=== PATIENT | male | born 1975 | race Caucasian/White ===

== ENCOUNTER → 2016-07-19 | Outpatient (CLI) | payer BC ==
[~2016-07-19] MED LIST: ALBUAER INH; B-CO1CAP3 PO; CETI10TA84 PO; CHLO1TAB47 PO; DIVA250T PO; DXM/4 PO; IBUP600T44 PO; LAMO1TAB PO; LANS15CA6 PO; LORA-741 PO; MONT1TAB3 PO; ONDA4TAB46 PO; PEDICHW50 PO; PRLSR20 PO; PROC1TAB5 PO; TEMO1CAP4 PO; TEMO1CAP7 PO
[2016-07-19 11:09] LABS: ALT/SGPT 26 U/L (12-78); AST/SGOT 9 U/L (15-37); BLOOD UREA NITROGEN 14 mg/dl (7-18); BUN/CREATININE RATIO 9.4 (10-20); CALCIUM 9.1 mg/dl (8.5-10.1); CARBON DIOXIDE 27 mmol/L (21-32); CHLORIDE 104 mmol/L (98-107); GLUCOSE 99 mg/dl (70-99); POTASSIUM 4.2 mmol/L (3.5-5.1); SODIUM 141 mmol/L (136-145)
[2016-07-19 11:11] LABS: ALB/GLOB RATIO 1.6 (0.9-2); ALKALINE PHOSPHATASE 85 U/L (45-117)
== END | disposition home or self-care (01) ==
LOC: C.LABBC 08:33
PROVIDERS: ATTEND Psychiatry & Neurology Neurology
DX: Z51.81 Encounter for therapeutic drug level monitoring (principal); R56.9 Unspecified convulsions; Z79.899 Other long term (current) drug therapy

== ENCOUNTER → 2016-08-06 | Outpatient (CLI) | payer BC ==
--- NOTE | 2016-08-08 13:23 | EEG Procedure Note ---
EEG Procedure Note Date of Service Aug 06, 2016. 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 EEG for further evaluation of seizures. Pertinent home medications: Lamictal Home Medication List Scheduled Divalproex Sodium (Depakote Er), 3 TAB PO BID Montelukast Sodium (Singulair), 10 MG PO DAILY Omeprazole (Prilosec), 20 MG PO DAILY Scheduled PRN Albuterol (Proventil Hfa), 2 PUFFS INH Q4 PRN for SOB/Wheezing Chlorpheniramine-Phenylephrine (Elisa-Campton Plus Cold), 1 TAB PO PRN PRN for COLD SYMPTOMS Ibuprofen (Motrin), 600 MG PO TID PRN for Pain Description This is a 21 electrode EEG with a single channel dedicated to limited EKG. The electrodes were placed in accordance with the International 10-20 system. There was intermittent electrode and muscle artifact that at times limited the read of this EEG. At the start of the recording the patient was in an awake state. Background was well organized and composed of mixed alpha and beta frequencies with continuous left hemispheric theta slowing maximal over the left frontal temporal region. There was a symmetric well-formed moderate amplitude 8-9 Hz posterior dominant rhythm that was reactive to eye opening and closure. Hyperventilation with good effort produced no abnormalities. Intermittent photic stimulation at various frequencies produced no abnormalities. Mild drowsiness was indicated by mild slowing of the background rhythm and loss of muscle artifact. There was no sleep transients. Interpretation This is an abnormal routine EEG secondary to continuous mild slowing over the left frontotemporal area. There was no electrographic seizures or epileptiform discharges. Clinical Correlation This EEG indicates a structural or functional cerebral dysfunction over the left frontotemporal area
== END | disposition home or self-care (01) ==
LOC: C.NEUR 13:51
PROVIDERS: ATTEND Psychiatry & Neurology Neurology
DX: C71.1 Malignant neoplasm of frontal lobe (principal); G40.209 Localization-related (focal) (partial) symptomatic epilepsy and epileptic syndromes with complex partial seizures, not intractable, without status epilepticus; R43.1 Parosmia

== ENCOUNTER → 2017-01-18 | Outpatient (CLI) | payer BC ==
[~2017-01-18] MED LIST changes: -CHLO1TAB47 PO; -DIVA250T PO; -IBUP600T44 PO; -MONT1TAB3 PO; -PRLSR20 PO
[2017-01-18 13:20] LABS: BASO % 0.4 %; BASO ABS # 0.03 K/uL (0-0.2); COMPLETE YES; EOS % 0.9 %; HEMATOCRIT 38.4 % (42-52); IG% 0.4 %; LYMPH % 16.2 %; LYMPH ABS # 1.23 K/uL (1.2-3.4); MEAN CELL VOLUME 80.7 fL (80-100); MEAN CORPUSCULAR HEMOGLOBIN 26.7 pg (25-34); MEAN CORPUSCULAR HGB CONC 33.1 g/dl (32-36); MEAN PLATELET VOLUME 9.4 fL (7.4-10.4); MONO % 8.4 %; NEUT % 73.7 %; PLATELET COUNT 124 K/uL (130-400); RED BLOOD COUNT 4.76 M/uL (4.7-6.1); WHITE BLOOD COUNT 7.59 K/uL (4.8-10.8)
[2017-01-18 13:56] LABS: ALT/SGPT 23 U/L (12-78); AST/SGOT 9 U/L (15-37); BLOOD UREA NITROGEN 8 mg/dl (7-18); BUN/CREATININE RATIO 5.1 (10-20); CALCIUM 8.8 mg/dl (8.5-10.1); CARBON DIOXIDE 26 mmol/L (21-32); CHLORIDE 105 mmol/L (98-107); GLUCOSE 95 mg/dl (70-99); POTASSIUM 3.7 mmol/L (3.5-5.1); SODIUM 141 mmol/L (136-145)
[2017-01-18 13:59] LABS: ALB/GLOB RATIO 1.5 (0.9-2); ALKALINE PHOSPHATASE 65 U/L (45-117)
== END | disposition home or self-care (01) ==
LOC: C.LAB 11:33
PROVIDERS: ATTEND Psychiatry & Neurology Neurology
DX: C71.9 Malignant neoplasm of brain, unspecified (principal)

== ENCOUNTER → 2017-01-18 | Outpatient (CLI) | payer BC ==
[2017-01-18 10:30] VITALS: BP 137/76; PULSE 100; TEMP 36.5; O2SAT 96
--- NOTE | 2017-01-18 12:11 | Radiation Oncology Follow-Up ---
Radiation Oncology Follow-Up Date of Visit Jan 18, 2017. Reason For Visit One-month follow-up Radiation Completion Date 11/20/16 Diagnosis (1) Glioblastoma multiforme Status: Acute Onset Date: 09/03/2016 Location: left frontal lobe Stage: IV Permanent Comment: Syncopal episodes, abnormal MRI Status post left frontotemporal craniotomy with resection of tumor 05/09/2015 ( -Dr. 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 Radiation completed 11/20/2016. He received 6000 cGy. Chemotherapy comprised of Temodar ([facility]-Dr. You) Last Edited By: Iwona Plaza on Jan 18, 2017 12:11 History of Present Illness Mr. Childs is a 41-year-old gentleman who initially presented to the emergency room in April 2015 with a partial focal seizure. He had a MRI of the Brain ( 05/01/15) - IMPRESSION: A 7.4 x 5.6 cm T2 hyperintense partially cystic lesion within the left frontal lobe/external capsule. This is highly suspicious for a mass despite the lack of enhancement. This may demonstrate both intra-axial and extra-axial components. There is associated 9 mm of right midline shift and left uncal herniation with mass effect along the midbrain. This is similar to the recent head CT. The patient subsequently went to [facility] for further care. He did have a CT of the chest/abdomen/pelvis on 05/03/2015 which showed no evidence of suspicious mass or lymphadenopathy. He did have a repeat MRI of the brain on April 2015 which an expansive, infiltrative, partially cystic nonenhancing mass centered within the left insula, anterior left frontal lobe and superior temporal lobe resulting in moderate mass effect on the left lateral ventricle, 9 mm rightward midline shift and left uncal herniation. The patient underwent a left partial craniotomy by Dr. Kurtz at [facility] on 05/09/2015 which revealed diffuse astrocytoma, WHO grade 2. 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 He also noted that the Ki-67 index was low. The patient did have a repeat follow-up MRI imaging of the brain which did show only postoperative changes with no evidence of recurrent disease. The patient continued to do well until he developed auras potentially associated with seizures. He did have a MRI of the brain on 08/21/2016 which revealed potential progression along the anterior and posterior margins of the resection cavity. The patient had a repeat MRI of the brain on 09/02/2016 which showed 2 enhancing foci, one in the region of the inferior frontal gyrus and second along the posterior margin of the resection cavity which both appear to be minimally more prominent compared to prior studies. Given the high likelihood of potential recurrence Dr. Kurtz recommended consideration for re-resection to rule out recurrent disease. The patient underwent a left craniotomy on 09/03/2016 and at the time of the procedure Dr. Kurtz did perform resections of both the anterior and posterior tumors previously noted on the MRI of the brain studies. Pathology from surgery revealed glioblastoma, WHO grade 4. At the time of this consultation, the MGMT methylation status was not reported. The patient did have a postoperative MRI of the brain 09/04/2016 which revealed postoperative changes following revision of the left parietal craniotomy; enhancing foci along the anterior and posterior aspects of the resection cavity seen on prior MRI are no longer evident and there is no other evidence of residual disease. The patient was seen in consultation by Dr. You from neuro-oncology at [facility] who recommended adjuvant chemotherapy and radiation therapy. Dr. You also discussed potential Optune therapy as well. We are now seeing the patient in consultation discuss the role of radiation therapy. The patient is doing well overall. He denies any focal neurologic deficits or headaches. The patient has stated that he has participated in sperm banking for preservation of fertility. He was treated with combined radiation and chemotherapy. Radiation was completed 11/20/2016. He received 6000 cGy. Chemotherapy comprised of Temodar. Interim History He is been doing well over the past month. Continues regular follow-up with Dr. You. He is now taking the Temodar 5 days of the month. He is now also using Optune. He began using the PedidosYa / PedidosJátSanera apparatus 2 weeks ago. He states he tolerates this well other than at night if there is a low battery. Sometimes a cable can become dislodged and will also cause an alarm. For the most part is not a problem. He has occasional headache. This is very mild. It does not require taking any [id number]-[id number] medications. This is usually very brief and resolve without difficulty. He is now been off of the steroids for 2 weeks. This was tapered slowly and then discontinued. He does note that he has decreased energy since being off of the steroid. He denies any soreness of the mouth. At times when he feels fatigued he will eat and that helps his energy level. He feels is related to lower blood sugar. He did see Dr. You and have a recheck MRI in [facility] on 12/17/2016. Allergies Coded Allergies: No Known Allergies (Unverified , 02/09/16) Home Medications Scheduled Lamotrigine (Lamictal Xr), 375 MG PO BID Lansoprazole (Prevacid), 15 MG PO HS Pediatric Multiple Vitamin W/ (Flintstones Chewable), 1 TAB PO QAM Temozolomide (Temodar), 1 CAP PO DIRECTED Temozolomide (Temodar), 1 CAP PO DIRECTED Scheduled PRN Albuterol (Proventil Hfa), 2 PUFFS INH Q4 PRN for SOB/Wheezing Ondansetron Hcl (Zofran), 4 MG PO for Nausea Prochlorperazine Maleate (Compazine), 1 TAB PO Q6 PRN for Nausea Review of Systems Gastrointestinal: Symptoms: Nausea, Constipation GI Comments: Waves of nausea;has antiemetics to use PRN;Takes miralax daily; Oral: Symptoms: No Problems Respiratory: Symptoms: WNL Urinary: Symptoms: WNL Skin: Symptoms: No Problems Physical Exam Vital Signs Date Time Temp Pulse Resp B/P (MAP) Pulse Ox O2 Delivery O2 Flow Rate FiO2 01/18/17 10:30 36.5 100 20 137/76 96 Fatigue: None General Appearance: no apparent distress Eyes: normal inspection, EOMI ENT: normal ENT inspection, hearing grossly normal Neck: no adenopathy, thyroid normal Respiratory/Chest: lungs clear, no respiratory distress, no accessory muscle use Cardiovascular: regular rate, rhythm, no gallop, no murmur Abdomen: non tender, soft, no organomegaly Extremities: no pedal edema Neurologic/Psychiatric: no motor/sensory deficits (very slight decreased strength of upper and lower extremities. This was equal bilaterally.), alert, normal mood/affect Skin: warm/dry Lymphatic: no adenopathy Laboratory Studies Test 11/07/16 17:31 11/14/16 08:29 01/18/17 11:40 RDW Standard Deviation 44.2 fL (36.4-46.3) 45.4 fL (36.4-46.3) RDW Coefficient of Variation 14.5 % (11.5-14.5) 15.1 % (11.5-14.5) White Blood Count 12.47 K/uL (4.8-10.8) 10.64 K/uL (4.8-10.8) Red Blood Count 4.65 M/uL (4.7-6.1) 4.85 M/uL (4.7-6.1) Hemoglobin 12.2 g/dL (14.0-18.0) 12.6 g/dL (14.0-18.0) Hematocrit 38.6 % (42-52) 39.9 % (42-52) Mean Corpuscular Volume 83.0 fL (80-100) 82.3 fL (80-100) Mean Corpuscular Hemoglobin 26.2 pg (25-34) 26.0 pg (25-34) Mean Corpuscular Hemoglobin Concent 31.6 g/dl (32-36) 31.6 g/dl (32-36) Platelet Count 243 K/uL (130-400) 194 K/uL (130-400) Mean Platelet Volume 9.1 fL (7.4-10.4) 9.3 fL (7.4-10.4) Neutrophils (%) (Auto) 83.5 % 79.6 % Lymphocytes (%) (Auto) 7.0 % 9.0 % Monocytes (%) (Auto) 8.5 % 9.8 % Eosinophils (%) (Auto) 0.0 % 0.3 % Basophils (%) (Auto) 0.1 % 0.1 % Neutrophils # (Auto) 10.42 K/uL (1.4-6.5) 8.47 K/uL (1.4-6.5) Lymphocytes # (Auto) 0.87 K/uL (1.2-3.4) 0.96 K/uL (1.2-3.4) Monocytes # (Auto) 1.06 K/uL (0.11-0.59) 1.04 K/uL (0.11-0.59) Eosinophils # (Auto) 0.00 K/uL (0-0.5) 0.03 K/uL (0-0.5) Basophils # (Auto) 0.01 K/uL (0-0.2) 0.01 K/uL (0-0.2) Immature Granulocyte % (Auto) 0.9 % 1.2 % Immature Granulocyte # (Auto) 0.11 K/uL (0.00-0.02) 0.13 K/uL (0.00-0.02) Est Creatinine Clear Calc Drug Dose 81.2 ml/min 88.0 ml/min Sodium Level 138 mmol/L (136-145) Potassium Level 4.3 mmol/L (3.5-5.1) Chloride Level 103 mmol/L (98-107) Carbon Dioxide Level 27 mmol/L (21-32) Anion Gap 8.0 mmol/L (3-11) Blood Urea Nitrogen 25 mg/dl (7-18) Creatinine 1.20 mg/dl (0.60-1.40) Estimated GFR () 87.8 Estimated GFR (Non- 75.7 BUN/Creatinine Ratio 20.6 (10-20) Random Glucose 90 mg/dl (70-99) Calcium Level 9.1 mg/dl (8.5-10.1) Total Bilirubin 0.4 mg/dl (0.2-1) Aspartate Amino Transferase (AST) 15 U/L (15-37) Alanine Aminotransferase (ALT) 67 U/L (12-78) Alkaline Phosphatase 38 U/L (45-117) Total Protein 6.2 gm/dl (6.4-8.2) Albumin 3.5 gm/dl (3.4-5.0) Globulin 2.7 gm/dl (2.5-4.0) Albumin/Globulin Ratio 1.3 (0.9-2) Additional Studies 12/17/2016 4:38 PM - Interface, Rad In Narrative EXAM MRI scan of the brain with and without contrast,12/17/2016 HISTORY 41-year-old male status post resection of left frontal lobe WHO grade II astrocytoma 05/09 2015. Recent repeat craniotomy and resection of left frontal lobe glioblastoma 09/03/2016 with subsequent radiation therapy and chemotherapy. COMPARISON Brain MRI scan 09/04/2016, 09/02/2016, 08/21/2016, 12/27/2015, 05/10/2015, 05/03, and 05/01/2015. TECHNIQUE Multiplanar, multisequence magnetic resonance images of the brain are acquired before and after administration of IV contrast on a 1.5 Krissy system. FINDINGS Again demonstrated are postoperative changes compatible with previous left fronto-parietal craniotomy for resection of left frontal lobe tumor. Edema and patchy restricted diffusion along the margins of the resection cavity noted on the immediate postoperative brain MRI dated 2016 has resolves. The residual resection cavity within the left frontal lobe communicates with the left frontal horn. Gradient recalled echo sequence shows minimal susceptibility artifact along the resection margins compatible with products of prior hemorrhage. No mass effect or surrounding edema is noted. Post-contrast images reveal no suspicious nodular enhancement in or about the resection cavity. Confluent T2/FLAIR signal hyperintensity and low T1 signal is again noted along the margins of the left frontal lobe resection cavity, extending into the left anteromedial temporal lobe, to include the uncus, amygdala, and anterior hippocampus. These signal abnormalities are grossly stable, considering differences in slice selection. No convincing new signal abnormalities are demonstrated. The brain is otherwise grossly normal in morphology. No midline shift, hydrocephalus, or extra-axial fluid collections are demonstrated. The pituitary gland, corpus callosum, pineal region, brainstem, cerebellum, and craniocervical junction are within normal limits. Expected intracranial arterial and venous flow voids are grossly patent. Mild, nonobstructive mucosal thickening and small retention cysts are incidentally noted in the maxillary and ethmoid sinuses. Nondedicated images through the orbits reveal no gross intraorbital pathology. IMPRESSION 1. Expected evolution of postoperative changes within the left frontal lobe at the site of recent tumor resection without abnormal enhancement. 2. Persistent T2/FLAIR signal hyperintensity surrounding the left frontal lobe resection cavity, and extending into the ipsilateral anteromedial temporal lobe may represent post treatment changes. However, residual nonenhancing tumor cannot be excluded. Continued MRI scan surveillance is warranted. Authenticated By Authenticating Date Authenticating Time Reading Providers(s) CASS RUIZ MD 12-17-2016 16:38 CASS RUIZ MD Assessment & Plan Plan: The patient was also seen and examined by Dr. Rosenthal. He'll continue regular follow-up and recheck MRIs with Dr. You. We discussed the effects of now being off the steroid therapy. He has noted weakness and fatigue. He had more stamina and energy while on steroid. He will continue on the Temodar 5 days of the month. He will also continue on the Optune therapy. We asked him to return to our office in 6 months. He may call if he has any questions or concerns in the interim. ADDENDUM: I agree with note created by Iwona Plaza PA-C. I reviewed the patient's chart and information with her. I have examined and evaluated the patient. I reviewed relevant clinical information and answered the patient's and /or family's questions. PATIENT BILLER Total Time In Follow-Up I spent 20 minutes speaking to the patient performing examination. I spent 15 minutes reviewing information completing this note. AK I spent 15 minutes examining and counseling the patient. PATIENT BILLER Copy To Esperanza MACK M.D.; Gildardo You M.D.
== END | disposition home or self-care (01) ==
LOC: C.ONC 10:15
PROVIDERS: ATTEND Physician Assistant Medical
DX: Z08 Encounter for follow-up examination after completed treatment for malignant neoplasm (principal); Z92.3 Personal history of irradiation; Z85.841 Personal history of malignant neoplasm of brain

== ENCOUNTER → 2017-01-24 | Outpatient (CLI) | payer BC | END | disposition home or self-care (01) | LOC: C.LAB 09:02 | PROVIDERS: ATTEND Psychiatry & Neurology Neurology | DX: Z51.81 Encounter for therapeutic drug level monitoring (principal) ==

== ENCOUNTER → 2017-05-21 | Outpatient (CLI) | payer BC ==
[~2017-05-21] MED LIST changes: -B-CO1CAP3 PO; -CETI10TA84 PO; -DXM/4 PO; -LORA-741 PO
[2017-05-21 09:56] LABS: BASO % 0.2 %; BASO ABS # 0.01 K/uL (0-0.2); COMPLETE YES; EOS % 3.5 %; HEMATOCRIT 41.5 % (42-52); IG% 0.2 %; LYMPH % 15.8 %; LYMPH ABS # 0.68 K/uL (1.2-3.4); MEAN CELL VOLUME 90.8 fL (80-100); MEAN CORPUSCULAR HEMOGLOBIN 31.7 pg (25-34); MEAN CORPUSCULAR HGB CONC 34.9 g/dl (32-36); MEAN PLATELET VOLUME 9.1 fL (7.4-10.4); MONO % 11.4 %; NEUT % 68.9 %; PLATELET COUNT 135 K/uL (130-400); RED BLOOD COUNT 4.57 M/uL (4.7-6.1); WHITE BLOOD COUNT 4.31 K/uL (4.8-10.8)
[2017-05-21 10:11] LABS: ALT/SGPT 25 U/L (12-78); BLOOD UREA NITROGEN 13 mg/dl (7-18); BUN/CREATININE RATIO 10.3 (10-20); CALCIUM 9.1 mg/dl (8.5-10.1); CARBON DIOXIDE 29 mmol/L (21-32); CHLORIDE 103 mmol/L (98-107); CREATININE 1.28 mg/dl (0.60-1.40); GLUCOSE 84 mg/dl (70-99); POTASSIUM 4.2 mmol/L (3.5-5.1); SODIUM 138 mmol/L (136-145)
[2017-05-21 10:13] LABS: ALB/GLOB RATIO 1.5 (0.9-2); ALKALINE PHOSPHATASE 95 U/L (45-117); AST/SGOT 11 U/L (15-37)
== END | disposition home or self-care (01) ==
LOC: C.LAB 08:08
PROVIDERS: ATTEND Psychiatry & Neurology Neurology
DX: G40.209 Localization-related (focal) (partial) symptomatic epilepsy and epileptic syndromes with complex partial seizures, not intractable, without status epilepticus (principal)

== ENCOUNTER → 2017-07-23 | Outpatient (CLI) | payer OTHER ==
[~2017-07-23] MED LIST changes: +CHOL1000 PO; +TEMO100I PO; +[UNRECOGNIZED DRUG - OTHER] PO
[2017-07-23 13:13] VITALS: BP 140/82; PULSE 90; TEMP 36.6; O2SAT 99
--- NOTE | 2017-07-23 16:25 | Radiation Oncology Follow-Up ---
Radiation Oncology Follow-Up Date of Visit Jul 23, 2017. Reason For Visit Six-month follow-up Radiation Completion Date finished 11-20-2016 Diagnosis (1) Glioblastoma multiforme Status: Acute Onset Date: 09/03/2016 Location: Left frontal lobe Stage: IV Permanent Comment: Syncopal episodes, abnormal MRI Status post left frontotemporal craniotomy with resection of tumor 05/09/2015 ( -Dr. 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 Radiation completed 11/20/2016. He received 6000 cGy. Chemotherapy comprised of Temodar ([facility]-Dr. Jean) Last Edited By: Iwona Plaza on Jul 23, 2017 16:17 History of Present Illness Mr. Childs presented to the emergency room in April 2015 with a partial focal seizure. He had a MRI of the Brain (05/01/15) - IMPRESSION: A 7.4 x 5.6 cm T2 hyperintense partially cystic lesion within the left frontal lobe/ external capsule. This is highly suspicious for a mass despite the lack of enhancement. This may demonstrate both intra-axial and extra-axial components. There is associated 9 mm of right midline shift and left uncal herniation with mass effect along the midbrain. This is similar to the recent head CT. The patient subsequently went to [facility] for further care. He did have a CT of the chest/abdomen/pelvis on 05/03/2015 which showed no evidence of suspicious mass or lymphadenopathy. He did have a repeat MRI of the brain on April 2015 which an expansive, infiltrative, partially cystic nonenhancing mass centered within the left insula, anterior left frontal lobe and superior temporal lobe resulting in moderate mass effect on the left lateral ventricle, 9 mm rightward midline shift and left uncal herniation. The patient underwent a left partial craniotomy by Dr. Kurtz at [facility] on 05/09/2015 which revealed diffuse astrocytoma, WHO grade 2. 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 He also noted that the Ki-67 index was low. The patient did have a repeat follow-up MRI imaging of the brain which did show only postoperative changes with no evidence of recurrent disease. The patient continued to do well until he developed auras potentially associated with seizures. He did have a MRI of the brain on 08/21/2016 which revealed potential progression along the anterior and posterior margins of the resection cavity. The patient had a repeat MRI of the brain on 09/02/2016 which showed 2 enhancing foci, one in the region of the inferior frontal gyrus and second along the posterior margin of the resection cavity which both appear to be minimally more prominent compared to prior studies. Given the high likelihood of potential recurrence Dr. Kurtz recommended consideration for re-resection to rule out recurrent disease. The patient underwent a left craniotomy on 09/03/2016 and at the time of the procedure Dr. Kurtz did perform resections of both the anterior and posterior tumors previously noted on the MRI of the brain studies. Pathology from surgery revealed glioblastoma, WHO grade 4. At the time of this consultation, the MGMT methylation status was not reported. The patient did have a postoperative MRI of the brain 09/04/2016 which revealed postoperative changes following revision of the left parietal craniotomy; enhancing foci along the anterior and posterior aspects of the resection cavity seen on prior MRI are no longer evident and there is no other evidence of residual disease. The patient was seen in consultation by Dr. You from neuro-oncology at [facility] who recommended adjuvant chemotherapy and radiation therapy. Dr. You also discussed potential Optune therapy as well. We are now seeing the patient in consultation discuss the role of radiation therapy. The patient is doing well overall. He denies any focal neurologic deficits or headaches. The patient has stated that he has participated in sperm banking for preservation of fertility. He was treated with combined radiation and chemotherapy. Radiation was completed 11/20/2016. He received 6000 cGy. Chemotherapy comprised of Temodar. Interim History Over the past 6 months he has been doing well. He denies any headaches or dizziness. He has had no change in vision. He continues on Temodar 5 days of the month. He does have associated nausea. He takes the antiemetic on a regular basis while on the Temodar. He is also receiving Optune therapy. He does have skin irritation intermittently. Currently feels that there are no areas of irritation. He has had regular follow-ups with the neuro-oncologist. He is now seeing Dr. Jean. He had a recheck MRI of the brain June 27, 2017. This showed postsurgical changes of the left frontoparietal craniotomy for the resection of the left frontal and insular tumor with stable T2/flair hyperintense signal along the margins of the resection cavity in the left frontal lobe, left posterior insula and left anterior temporal lobe without abnormal contrast enhancement or increased R CBV likely representing residual tumor. Interval appearance of small focal enhancing T2/flair hyperintense lesion in the body of the corpus callosum without increased R CBV, likely representing posttreatment changes. However high-grade tumor cannot be entirely excluded. Suggested closed attention on follow-up imaging. With this finding he is rescheduled for an MRI in July. He will have a follow-up visit with the neuro-oncologist. Allergies Coded Allergies: No Known Allergies (Unverified , 02/09/16) Home Medications Scheduled Lamotrigine (Lamictal Xr), 375 MG PO BID Lansoprazole (Prevacid), 15 MG PO HS Pediatric Multiple Vitamin W/ (Flintstones Chewable), 1 TAB PO QAM Temozolomide (Temodar), 400 MG PO UD [viatmin d ], 1 TAB PO DAILY Scheduled PRN Albuterol (Proventil Hfa), 2 PUFFS INH Q4 PRN for SOB/Wheezing Prochlorperazine Maleate (Compazine), 1 TAB PO Q6 PRN for Nausea Review of Systems Gastrointestinal: Symptoms: Nausea GI Comments: takes meds as needed Oral: Symptoms: No Problems Respiratory: Symptoms: SOB With Exertion Respiratory Comments: uses an inhaler as needed Other Respiratory: " I have asthma and am getting over a cold " Urinary: Symptoms: WNL Skin: Other Skin Symptoms: "gets a sore on his head at times from the Optune " Physical Exam Vital Signs Date Time Temp Pulse Resp B/P (MAP) Pulse Ox O2 Delivery O2 Flow Rate FiO2 07/23/17 13:13 36.6 90 18 140/82 99 Fatigue: None General Appearance: no apparent distress Eyes: normal inspection, PERRL, EOMI ENT: normal ENT inspection, hearing grossly normal Neck: no adenopathy, thyroid normal Respiratory/Chest: lungs clear, no respiratory distress, no accessory muscle use Cardiovascular: regular rate, rhythm, no gallop, no murmur Extremities: no pedal edema Neurologic/Psychiatric: test man II-XII nml as tested, no motor/sensory deficits, alert, normal mood/affect Skin: warm/dry Pain Management Patient Reports Pain: No Side: Bilateral Patient Preferred Pain Scale: 0 - 10 Initial Pain Intensity: 0.0 Pain Management Plan He denies pain therefore requires no pain management. Laboratory Laboratory Results: not applicable Pathology Pathology Results: not applicable Imaging Imaging Studies: were reviewed Imaging Comments Reviewed in the interim history. Assessment & Plan Plan: The patient was seen and examined by Dr. Rosenthal. He will be having a recheck MRI in July. He continues on the Temodar 5 days out of the month. He continues on his antiemetic regimen. We asked him to return to our office in 6 months. There are concerns for recurrence. Dr. Rosenthal reviewed with him attentional options of treatment including reexcision, chemotherapy, or stereotactic radiation. He continues with the Optune therapy. Assessment & Plan (Attending) I agree with note created by Iwona Plaza PA-C. I reviewed the patient's chart and information with her. I have examined and evaluated the patient. I reviewed relevant clinical information and answered the patient's and/or family' s questions. PATIENT PLACEMENT COORDINATOR Total Time In Follow-Up I spent 20 minutes speaking to the patient and performing examination. I spent 15 minutes reviewing information and completing this note. AK Total Time (Attending) In Follow-Up I spent 15 minutes examining and counseling the patient. PATIENT PLACEMENT COORDINATOR Copy To Corrine Jean MD; Esperanza MACK M.D.
== END | disposition home or self-care (01) ==
LOC: C.ONC 12:53
PROVIDERS: ATTEND Physician Assistant Medical
DX: Z08 Encounter for follow-up examination after completed treatment for malignant neoplasm (principal); Z92.3 Personal history of irradiation; Z85.841 Personal history of malignant neoplasm of brain

== ENCOUNTER → 2017-12-20 | Outpatient (CLI) | payer OTHER ==
[~2017-12-20] MED LIST changes: -CHOL1000 PO; -ONDA4TAB46 PO; +PROC10TA PO; -PROC1TAB5 PO; -TEMO1CAP4 PO; -TEMO1CAP7 PO
[2017-12-20 09:38] LABS: BASO % 0.4 %; BASO ABS # 0.02 K/uL (0-0.2); EOS % 1.5 %; EOS ABS # 0.08 K/uL (0-0.5); HEMATOCRIT 41.3 % (42-52); HEMOGLOBIN 14.2 g/dL (14.0-18.0); IG# 0.01 K/uL (0.00-0.02); LYMPH % 20.8 %; LYMPH ABS # 1.08 K/uL (1.2-3.4); MEAN CELL VOLUME 87.1 fL (80-100); MEAN PLATELET VOLUME 9.3 fL (7.4-10.4); MONO % 6.7 %; MONO ABS # 0.35 K/uL (0.11-0.59); NEUT % 70.4 %; NEUT ABS # 3.65 K/uL (1.4-6.5); PLATELET COUNT 187 K/uL (130-400); RED CELL DISTRIBUTION WIDTH CV 13.1 % (11.5-14.5); WHITE BLOOD COUNT 5.19 K/uL (4.8-10.8)
[2017-12-20 09:45] LABS: MEAN CORPUSCULAR HGB CONC 34.4 g/dl (32-36)
[2017-12-20 10:03] LABS: ALBUMIN 4.1 gm/dl (3.4-5.0); ALT/SGPT 27 U/L (12-78); AST/SGOT 15 U/L (15-37); BLOOD UREA NITROGEN 18 mg/dl (7-18); CALCIUM 8.7 mg/dl (8.5-10.1); CARBON DIOXIDE 27 mmol/L (21-32); GLUCOSE 94 mg/dl (70-99); POTASSIUM 4.3 mmol/L (3.5-5.1); SODIUM 135 mmol/L (136-145)
[2017-12-20 10:06] LABS: ALKALINE PHOSPHATASE 75 U/L (45-117); TOTAL PROTEIN 6.9 gm/dl (6.4-8.2)
== END | disposition home or self-care (01) ==
LOC: C.LAB 09:01
PROVIDERS: ATTEND Registered Nurse
DX: C71.1 Malignant neoplasm of frontal lobe (principal)